=== PATIENT | female | born 1955 | race Caucasian/White ===

== ENCOUNTER → 2016-10-17 19:41 | Outpatient (CLI) | payer MEDICAID ==
[2015-04-17 10:41] VITALS: BMI 27.5
[~2016-10-17 19:41] MED LIST: ATIVAN2 MG PO; CELEXA20 MG PO; ELAVIL75 MG; EZFE 200200 MG PO; HYDROCODONE-APA1 TAB PO; KLOR-CON 1010 MEQ PO; LISINOPRIL5 MG PO; MIRAPEX0.5 MG PO; MOBIC7.5 MG PO; PRILOSEC20 MG PO; REQUIP0.25 MG; WELLBUTRIN XL150 M1 PO; ZYPREXA2.5 MG
== END | disposition home or self-care (01) ==
LOC: D.SLEEP 19:41
DX: R09.02 Hypoxemia (principal)

== ENCOUNTER → 2016-10-24 19:25 | Outpatient (CLI) | payer MEDICAID ==
[2015-04-17 10:41] VITALS: BMI 27.5
== END | disposition home or self-care (01) ==
LOC: D.SLEEP 19:25
DX: G47.33 Obstructive sleep apnea (adult) (pediatric) (principal); G47.419 Narcolepsy without cataplexy

== ENCOUNTER 2020-09-23 13:07 | Emergency (ER) | payer MEDICAID ==
[~2020-09-23] VITALS: Ht 162.6 cm; Wt 95.5 kg
[2020-09-23 13:11] VITALS: Ht 162.6 cm; Wt 95.5 kg
[2020-09-23 13:43] LABS: BASOPHILS 0.5 % (0-2); EOSINOPHILS 4.6 % (0-7); LYMPHOCYTES 15.1 % (15-50); MCH 27.8 pg (26.0-34.0); MCHC 32.3 g/dL (31.0-37.0); MCV 86.1 fL (80.0-100.0); MEAN PLATELET VOLUME 8.3 fL (7.4-10.4); MONOCYTES 7.5 % (2-11); NEUTROPHILS 72.3 % (40-80); RBC 3.95 10x6/uL (4.00-5.40); RDW 15.4 % (11.5-14.5); WBC 6.1 10x3/uL (4.8-10.8)
[2020-09-23 13:47] LABS: APTT 26.2 SECONDS (22.8-39.4); CALC OSMOLALITY 282 mosm/kg (275-300); CALCIUM 9.4 mg/dL (8.5-10.1); CARBON DIOXIDE 28.4 mmol/L (21.0-32.0); CHLORIDE - SERUM 102 mmol/L (98-107); CREATININE - SERUM 1.1 mg/dL (0.6-1.3); GLUCOSE 97 mg/dL (74-106); INR 1.09 (0.85-1.17); POTASSIUM - SERUM 4.1 mmol/L (3.5-5.1); SODIUM 141 mmol/L (136-145); UREA NITROGEN 17 mg/dL (7-18); eGFR NON AFRICAN AMERICAN 53 mL/min (90-120)
[2020-09-23 13:54] LABS: PLATELET COUNT 246 10x3/uL (130-400)
[2020-09-23 14:05] LABS: ALBUMIN 3.8 g/dL (3.4-5.0); ALKALINE PHOSPHATASE 114 U/L (30-120); ALT (SGPT) 22 U/L (10-68); BILIRUBIN - TOTAL 0.26 mg/dL (0.2-1.3); CKMB 0.8 U/L (0.0-3.6); CREATINE KINASE 39 UL (21-215); MAGNESIUM - SERUM 1.9 mg/dL (1.8-2.4); PROTEIN - SERUM 7.5 g/dL (6.4-8.2); THYROID STIMULATING HORMONE 6.99 uIU/mL (0.36-3.74); TROPONIN-I < 0.017 ng/mL (0.000-0.060)
[2020-09-23 18:15] LABS: BILIRUBIN NEGATIVE (NEGATIVE); KETONE NEGATIVE mg/dL (< 1+); NITRITE NEGATIVE (NEGATIVE); SQUAMOUS EPITHELIAL 1 HPF (0-4); UROBILINOGEN NORMAL mg/dL (< 2); WHITE CELLS - URINE 1 HPF (0-4)
[2020-09-23 18:38] LABS: UDS - AMPHET NEGATIVE QUAL (NEGATIVE); UDS - BARB NEGATIVE QUAL (NEGATIVE); UDS - BENZO NEGATIVE QUAL (NEGATIVE); UDS - COCAINE NEGATIVE QUAL (NEGATIVE); UDS - OPIATE NEGATIVE QUAL (NEGATIVE); UDS - PCP NEGATIVE QUAL (NEGATIVE); UDS - THC POSITIVE QUAL (NEGATIVE)
[2020-09-23] MEDS ORDERED: DIFLUCAN150 MG PO (21:46)
[2020-09-23 22:48] VITALS: BP 126/84
== END 2020-09-23 22:48 | disposition home or self-care (01) ==
LOC: D.ER 13:07
PROVIDERS: Family Medicine
DX: R41.82 Altered mental status, unspecified (principal); F03.90 Unspecified dementia, unspecified severity, without behavioral disturbance, psychotic disturbance, mood disturbance, and anxiety; B37.89 Other sites of candidiasis; R07.9 Chest pain, unspecified